=== PATIENT | female | born 1970 | race Caucasian/White ===

== ENCOUNTER 2018-08-05 06:01 | Day surgery (SDC) | payer MEDICAID, OTHER ==
[2018-08-05] MEDS ORDERED: ENOXAPARIN SODIUM 40 MG/0.4 ML DISP.SYRIN SQ ONE (06:21)
[2018-08-05] MEDS ORDERED: LACTATED RINGERS 1,000 ML IV ONE (06:22)
[2018-08-05] MEDS ORDERED: FAMOTIDINE/PF 20 MG/2 ML VIAL ONE ×2 (07:27→08:48)
[2018-08-05] MEDS ORDERED: SCOPOLAMINE HYDROBROMIDE 1.5MG/72HR PATCH TD ONE ×2 (07:33→08:48)
[2018-08-05] MEDS ORDERED: PROPOFOL 200 MG/20 ML VIAL IV ONE (08:48)
[2018-08-05] MEDS ORDERED: SEVOFLURANE 250 ML LIQUID IH ONE (08:48)
[2018-08-05] MEDS ORDERED: ACETAMINOPHEN 1,000 MG/100 ML INJ IV ONE (08:48)
[2018-08-05] MEDS ORDERED: FENTANYL 250MCG/5ML VIAL ONE (08:48)
[2018-08-05] MEDS ORDERED: LACTATED RINGERS 1,000 ML IV.SOLN IV ONE (08:48)
[2018-08-05] MEDS ORDERED: SUGAMMADEX 200 mg/2mL 200 MG/2 ML VIAL IV ONE (08:48)
[2018-08-05] MEDS ORDERED: ceFAZolin SODIUM 1 GM VIAL ONE (08:48)
[2018-08-05] MEDS ORDERED: MIDAZOLAM HCL 2 MG/2 ML VIAL ONE (08:48)
[2018-08-05] MEDS ORDERED: GLYCOPYRROLATE 0.2 MG/1 ML 1 ML ONE (08:48)
[2018-08-05] MEDS ORDERED: DEXAMETHASONE SOD PHOS 4 MG/ML VIAL ONE (08:48)
[2018-08-05] MEDS ORDERED: ROCURONIUM BROMIDE 10 MG/ML 5ML VIAL ONE (08:48)
[2018-08-05] MEDS ORDERED: LIDOCAINE HCL/PF 2% 100 MG/5 ML VIAL IJ ONE (08:48)
[2018-08-05] MEDS ORDERED: ONDANSETRON HCL/PF 4 MG/ 2ML VIAL ONE (08:48)
== END 2018-08-05 10:28 | disposition other institution (70) ==
LOC: OPSURG 06:01
PROVIDERS: ATTEND Surgery
DX: E66.01 Morbid (severe) obesity due to excess calories (principal); Z68.42 Body mass index [BMI] 45.0-49.9, adult; K21.9 Gastro-esophageal reflux disease without esophagitis; I10 Essential (primary) hypertension
CPT/HCPCS: 43235; 43775; A9270; J1650; J2250; J7120; S0028; J0690; J1100; J2001; J2405; J2704; J3490

== ENCOUNTER 2018-08-05 10:13 | Inpatient (IN) | payer MEDICAID, OTHER ==
[2018-08-05] MEDS ORDERED: ONDANSETRON HCL/PF 4 MG/ 2ML VIAL IVP PRN (10:30)
[2018-08-05] MEDS ORDERED: diphenhydrAMINE HCL 50 MG/ML VIAL IVP PRN (10:30)
[2018-08-05] MEDS ORDERED: PROMETHAZINE HCL 25 MG in 0.9 % SODIUM CHLORIDE 50 ML IV PRN (10:30)
[2018-08-05] MEDS ORDERED: LEVALBUTEROL HCL 1.25 MG/3 ML AMPUL.NEB NEB PRN (10:30)
[2018-08-05] MEDS: KETOROLAC TROMETHAMINE 30 MG/1ML VIAL IVP PRN ×2 (11:24→18:01)
[2018-08-05] MEDS: 0.9 % SODIUM CHLORIDE 1,000 ML IV SCH ×2 (11:25→18:02)
[2018-08-05] MEDS: ENOXAPARIN SODIUM 40 MG/0.4 ML DISP.SYRIN SQ SCH (11:25)
[2018-08-05] MEDS: CEFAZOLIN SODIUM/DEXTROSE,ISO 1 GM/50 ML PIGGYBACK IV SCH ×2 (13:58→20:10)
[2018-08-05] MEDS: fentaNYL CITRATE/PF 100 MCG/ 2ML AMP IVP PRN ×2 (13:59→21:38)
--- NOTE | 2018-08-05 14:53 | History and Physical Report ---
History of Present Illnes - History of Present Illness Reason for Visit: S/P Sleeve Gastrectomy History of Present Illness: Patient is a 47-year-old white female that is being admitted s/p sleeve gastrectomy. Procedure went well- patient tolerated well. She will be admitted for IVF, pain medication, and diet monitoring with precautions. Patient will get up and ambulate frequently to prevent DVT's (along with the use of SCDs while in bed) and use IS frequently to prevent respiratory infections- this has all been explained to patient and she voices understanding. - Past Medical History Cardiac: HTN. denies: AFIB, Hyperlipidemia Pulmonary: denies: Asthma, Bronchitis [employer]: Migraine. denies: Seizure Gastrointestinal: Irritable bowel disease Heme/Onc: denies: Anemia NOS, Iron deficiency anemia Hepatobiliary: denies: Cirrhosis, Cholelithiasis, Hep A/B/C Psych: Anxiety, Depression Musculoskeletal: denies: Osteoarthritis Rheumatologic: denies: Fibromyalgia Infectious Disease: denies: HIV ENT: denies: Sinusitis Renal/: denies: Chronic renal insuff Endocrine: Diabetes (Patient states she is "prediabetic"), Hypothyroidism Dermatology: denies: Cellulitis Grav: 6 Para: 6 - Past Surgical History Past Surgical History: (6 c-sections), Hernia Repair (umbilical) - Past Family History Father Family History: Other (unknown hx) Mother Family History: Cancer, Other (mother at age 43 from brain cancer) - Past Social History Smoke: No Alcohol: None Drugs: None Lives: With Family Domestic Violence: Negative - Health Maintenance Health Maintenance: denies: Influenza Vaccine, Pneumococcal Vaccine Influenza Vaccine: No Pneumonia Vaccine: No Resuscitation Status: Resusciation Status Resuscitation Status Full Code - Unable to Obtain History Unable to Obtain: No Review of Systems - Review of Systems Constitutional: negative: Fever, Chills Eyes: negative: pain, vision change ENT: negative: Ear Pain, Ear Discharge Respiratory: negative: Shortness of Breath, Wheezing Cardiovascular: negative: Chest Pain, Palpitations Gastrointestinal: Nausea, Abdominal Pain (s/p surgery). negative: Vomiting, Diarrhea, Constipation Genitourinary: negative: Dysuria Musculoskeletal: negative: Neck Pain, Shoulder Pain Skin: negative: Rash Neurological: negative: Incoordination, Confusion - Medications/Allergies Allergies/Adverse Reactions: Allergies Allergy/AdvReac Type Severity Reaction Status Date / Time No Known Allergies Allergy Verified 08/05/18 10:53 Home Medications: Home Medications Benazepril/Hydrochlorothiazide [Lotensin Hct 5-6.25 Tablet] 1 each PO DAILY 08/05/18 Duloxetine HCl [Cymbalta] 60 mg PO DAILY 08/05/18 Levothyroxine Sodium [Synthroid] 175 mcg PO 0700 08/05/18 Metformin HCl [Glucophage] 1,000 mg PO PM 08/05/18 Metformin HCl [Glucophage] 500 mg PO [id number] 08/05/18 Current Inpatient Medications: Current Inpatient Medications Cefazolin Sodium/Dextrose (Cefazolin 1 G/50 Ml-Dextrose) 1 gm IV Q8H JOSE ALEJANDRO Stop: 08/05/18 23:00 Last Admin: 08/05/18 13:58 Dose: 1 gm Diphenhydramine HCl (Benadryl) 25 mg IVP Q6H PRN PRN Reason: Sleeping and Itching Stop: 08/09/18 10:29 Duloxetine HCl (Cymbalta) 60 mg PO HS JOSE ALEJANDRO Enoxaparin Sodium (Lovenox) 40 mg SQ QD [facility] Stop: 08/19/18 10:59 Last Admin: 08/05/18 11:25 Dose: Not Given Famotidine (Pepcid) 20 mg IVP BID [facility] Stop: 08/09/18 20:59 Fentanyl Citrate (Duragesic) 100 mcg IVP Q2H PRN PRN Reason: Severe Pain Stop: 08/09/18 10:29 Last Admin: 08/05/18 13:59 Dose: 100 mcg Sodium Chloride (Normal Saline) 1,000 mls @ 150 mls/hr IV Q8H JOSE ALEJANDRO Last Admin: 08/05/18 11:25 Dose: 150 mls/hr Promethazine HCl 25 mg/ Sodium (Chloride) 51 mls @ 200 mls/hr IV Q6 PRN PRN Reason: Nausea / Vomiting Stop: 08/09/18 10:29 Ketorolac Tromethamine (Toradol) 30 mg IVP Q6 PRN PRN Reason: For Mild Pain Stop: 08/09/18 10:29 Last Admin: 08/05/18 11:24 Dose: 30 mg Levalbuterol HCl (Xopenex) 1.25 mg NEB Q4 PRN PRN Reason: SOA, Dyspnea, or Wheezing Stop: 08/09/18 10:29 Levothyroxine Sodium (Synthroid) 175 mcg PO 0700 [facility] Miscellaneous (Chem Sticks) 1 each MC Q6H JOSE ALEJANDRO Last Admin: 08/05/18 11:25 Dose: 1 each Morphine Sulfate () 4 mg IVP Q2 PRN PRN Reason: Severe Pain Stop: 08/09/18 10:29 Ondansetron HCl (Zofran 4 Mg/2 Ml) 4 mg IVP Q6H PRN PRN Reason: Nausea / Vomiting Stop: 08/09/18 10:29 Exam - Exam Vital Signs: Vital Signs (72 hours) 08/05/18 08/05/18 08/05/18 10:30 11:00 11:30 Temperature 98.8 F 98.4 F 98.1 F Pulse Rate [ 96 H 97 H 99 H Right] Respiratory 18 18 18 Rate Blood Pressure 147/82 164/78 174/89 [Right Arm] O2 Sat by Pulse 93 95 96 Oximetry General: Alert, Oriented to Person, Oriented to Place, Oriented to Time, Cooperative, Mild distress HEENT: Atraumatic, PERRLA, Mouth Mucous membr. moist/[place], Nose Mucous membr. moist/[place] Neck: Normal Range of Motion. No: Stridor, Rigidity Lungs: Clear to auscultation, Normal air movement. No: Wheezes Cardiovascular: Regular rate, Normal S1, Normal S2 Murmur: No: Systolic Murmur Abdomen: Normal bowel sounds, Soft. No: No tenderness Integumentary: Normal, [place], Warm, Dry Extremities: Normal pulses, No tenderness/swelling Neurological: Normal gait, Strength Equal Bilat, Sensation intact Psych/Mental Status: Mental status NL, Mood NL, Appropriate Affect Assessment/Plan - Assessment/Plan (1) Status post gastric surgery Status: Acute Current Visit: Yes Assessment: Patient has been up and ambulating in the hallway without difficulty Plan: Patient will receive IVF, IV pain management for 24 hours and then transition to oral. Lovenox and SCDs for DVT prevention. Advance diet as tolerated per protocol. IV H2 aby twice a day. (2) Morbid obesity Status: Acute Current Visit: Yes (3) Hypertension Status: Acute Current Visit: Yes Plan: Will plan to hold benazapril during hospitalization and monitor BP closely (4) Pre-diabetes Status: Acute Current Visit: Yes Assessment: Patient states that she is not a diabetic but takes metformin 500mg in the a.m. and 1000mg in the p.m. Plan: Will hold Metformin during hospitalization and check blood sugars every 6 hours (5) Hypothyroid Status: Acute Current Visit: Yes Qualifiers: Hypothyroidism type: unspecified Qualified Code(s): E03.9 - Hypothyroidism, unspecified Plan: Will continue with thyroid medication (6) Anxiety and depression Status: Acute Current Visit: Yes Plan: Will continue Cymbalta during hospitalization (7) Irritable bowel syndrome (IBS) Status: Acute Current Visit: Yes Plan: Will hold IBS meds that are oral but will give pepcid 20 mg IV twice a day and monitor VTE Assessment - RISK FACTOR SCORE VTE RISK FACTOR SCORES: AGE 40-60 YEARS, MAJOR SURGERY/ANESTHESIA TIME > 1 HOUR
[2018-08-05] MEDS ORDERED: ceFAZolin SODIUM 1 GM VIAL IVP SCH (16:00)
[2018-08-05 18:47] VITALS: BMI 49.1
[2018-08-05] MEDS ORDERED: 0.9 % SODIUM CHLORIDE 50 ML IV ONE (20:32)
[2018-08-05] MEDS ORDERED: DULoxetine HCL 30 MG CAPSULE.DR PO SCH (21:00)
[2018-08-05] MEDS: FAMOTIDINE/PF 20 MG/2 ML VIAL IVP SCH (21:40)
[2018-08-05] MEDS: MORPHINE SULFATE 4 MG/ML PREFILLED SYR IVP PRN (23:15)
[2018-08-06] MEDS ORDERED: LEVOTHYROXINE SODIUM 25 MCG TABLET PO SCH ×2 (04:00→07:00)
[2018-08-06] MEDS: 0.9 % SODIUM CHLORIDE 1,000 ML IV SCH ×2 (04:41→15:11)
[2018-08-06] MEDS: LEVOTHYROXINE SODIUM 25 MCG TABLET PO SCH (04:42)
[2018-08-06] MEDS: MORPHINE SULFATE 4 MG/ML PREFILLED SYR IVP PRN ×2 (04:51→19:38)
[2018-08-06] MEDS ORDERED: DULoxetine HCL 30 MG CAPSULE.DR PO SCH (06:00)
[2018-08-06] MEDS: DULoxetine HCL 30 MG CAPSULE.DR PO SCH ×3 (06:17→21:11)
[2018-08-06] MEDS ORDERED: LEVOTHYROXINE SODIUM 100 MCG TABLET PO SCH (07:00)
[2018-08-06] MEDS ORDERED: LISINOPRIL 5 MG TABLET PO ONE (07:04)
[2018-08-06] MEDS: HYDROCHLOROTHIAZIDE 25 MG TABLET PO SCH ×2 (07:27→10:03)
[2018-08-06] MEDS ORDERED: 0.9 % SODIUM CHLORIDE 1,000 ML IV SCH (07:34)
[2018-08-06] MEDS ORDERED: MAG HYDROX/ALUMINUM HYD/SIMETH 30 ML UDC PO ONE ×2 (07:34→18:43)
[2018-08-06] MEDS ORDERED: PROMETHAZINE HCL 25 MG/ML VIAL ONE (08:01)
--- NOTE | 2018-08-06 08:23 | Inpatient Progress Note ---
Subjective - Required Recertification Statement I anticipate X number of days because-include discharge plan: 1 - Review of Systems Events since last encounter: Patient has been doing very well walking frequently in the hallway and using incentive spirometer. She stated that if she is continually taking sips every 15 minutes she does great with n/v but if she sleeps and then tries to take sips she experiences nausea and dry heaves. We held her blood pressure medication d/t surgery. Blood pressure was elevated this morning with systolic > 180. Tried to give her blood pressure med and she vomited immediately. Gave her mylanta and waited 15 min and patient felt much better and was able to take blood pressure medication. Subjective: Patient states that she is having no difficulty with walking, denies shortness of breath or leg pain. Only complaint is nausea and dry heaves- she feels that her pain is controlled and triggered by dry heaves. General: Denies: Chills HEENT: Denies: Head Aches, Visual Changes, Eye Pain Pulmonary: Denies: Dyspnea, Cough Cardiovascular: Denies: Chest Pain, Palpitations Gastrointestinal: Nausea, Vomiting, Abdominal Pain. Denies: Diarrhea, Constipation Genitourinary: Denies: Dysuria Musculoskeletal: Denies: Neck Pain, Shoulder Pain Neurological: Denies: Incoordination, Confusion Objective - Exam Vitals and I&O: Vital Signs Temp 97.3 F L 08/06/18 06:00 Pulse 100 H 08/06/18 06:00 Resp 16 08/06/18 06:00 BP 194/88 08/06/18 06:00 Pulse Ox 95 08/06/18 06:00 Intake & Output 08/05/18 08/05/18 08/06/18 11:59 23:59 11:59 Intake Total 94 1915 2720 Output Total 1200 2200 Balance 94 715 520 Weight 134 kg Intake: IV 94 1615 2700 Left Wrist 94 1615 900 Right Forearm 1800 Oral 300 20 Output: Urine 1200 2200 Other: Voiding Method Toilet Toilet Toilet # Voids 4 1 General: Alert, Oriented to Person, Oriented to Place, Oriented to Time, Cooperative, Mild distress (d/t nausea and dry heaves) HEENT: Atraumatic, PERRLA, Mouth Mucous membr. moist/[place], Nose Mucous membr. moist/[place] Neck: Supple, +2 carotid pulse wo bruit Lungs: Clear to auscultation, Normal air movement, Speaks full Sentences. No: Wheezes, Rales Cardiovascular: Regular rate, Normal S1, Normal S2 Abdomen: Normal bowel sounds, Soft. No: Distended Extremities: Normal pulses, No tenderness/swelling Skin: Normal, [place], Warm, Dry Neurological: Normal gait, Normal speech, Strength Equal Bilat Psych/Mental Status: Mental status NL, Mood NL, Appropriate Affect, Intact Judgment Other physical findings: Incisions are without redness or excessive drainage Assessment/Plan - Assessment/Plan (1) Status post gastric surgery Status: Acute Current Visit: Yes Assessment: Patient has been experiencing nausea and dry heaves- states it only occurs after she wakes up (when she is awake and taking frequent sips she does well) Plan: Mylanta was given and helped with nausea (2) Morbid obesity Status: Acute Current Visit: Yes (3) Hypertension Status: Acute Current Visit: Yes Qualifiers: Hypertension type: essential hypertension Qualified Code(s): I10 - Essential (primary) hypertension Assessment: Blood pressure elevated this morning- attempted to give BP med this morning and patient immediately vomited. Gave Mylanta and waited 15 minutes and patient was able to take her BP meds. Will continue to monitor BP (4) Pre-diabetes Status: Acute Current Visit: Yes Assessment: Blood sugars have been stable at 110 & 112. No hypo/hyperglycemic sx's noted. Plan: Will continue to hold Metformin and monitor blood sugars (5) Hypothyroid Status: Acute Current Visit: Yes Qualifiers: Hypothyroidism type: unspecified Qualified Code(s): E03.9 - Hypothyroidism, unspecified (6) Anxiety and depression Status: Acute Current Visit: Yes (7) Irritable bowel syndrome (IBS) Status: Acute Current Visit: Yes
[2018-08-06] MEDS ORDERED: 0.9 % SODIUM CHLORIDE 50 ML IV ONE (09:18)
[2018-08-06] MEDS: FAMOTIDINE/PF 20 MG/2 ML VIAL IVP SCH ×2 (09:33→19:28)
[2018-08-06] MEDS: ENOXAPARIN SODIUM 40 MG/0.4 ML DISP.SYRIN SQ SCH (11:16)
[2018-08-06] MEDS: HYDROCODONE/ACETAMINOPHEN 15 ML SOLUTION PO PRN (12:36)
[2018-08-06] MEDS: fentaNYL CITRATE/PF 100 MCG/ 2ML AMP IVP PRN (13:43)
[2018-08-07] MEDS: fentaNYL CITRATE/PF 100 MCG/ 2ML AMP IVP PRN (01:06)
[2018-08-07] MEDS: 0.9 % SODIUM CHLORIDE 1,000 ML IV SCH ×2 (01:11→13:13)
[2018-08-07] MEDS: DULoxetine HCL 30 MG CAPSULE.DR PO SCH (04:46)
[2018-08-07] MEDS: LEVOTHYROXINE SODIUM 25 MCG TABLET PO SCH (05:08)
[2018-08-07] MEDS: HYDROCODONE/ACETAMINOPHEN 15 ML SOLUTION PO PRN ×2 (06:15→11:29)
[2018-08-07] MEDS: FAMOTIDINE/PF 20 MG/2 ML VIAL IVP SCH (08:13)
[2018-08-07] MEDS ORDERED: LISINOPRIL 5 MG TABLET PO ONE (09:00)
[2018-08-07] MEDS ORDERED: HYDROCHLOROTHIAZIDE 25 MG TABLET PO SCH (09:00)
--- NOTE | 2018-08-07 09:16 | Discharge Summary ---
Discharge Summary - Discharge Sumary History of Present Illness: Patient is a 47-year-old white female that is being admitted s/p sleeve gastrectomy. Procedure went well- patient tolerated well. She will be admitted for IVF, pain medication, and diet monitoring with precautions. Patient will get up and ambulate frequently to prevent DVT's (along with the use of SCDs while in bed) and use IS frequently to prevent respiratory infections- this has all been explained to patient and she voices understanding. Condition at Discharge: Stable Home Medications: Ambulatory Orders Medication Instructions Recorded Benazepril/Hydrochlorothiazide 1 each PO DAILY 08/05/18 [Lotensin Hct 5-6.25 Tablet] Duloxetine HCl [Cymbalta] 60 mg PO DAILY 08/05/18 Levothyroxine Sodium [Synthroid] 175 mcg PO 0700 08/05/18 Metformin HCl [Glucophage] 1,000 mg PO PM 08/05/18 Metformin HCl [Glucophage] 500 mg PO [id number] 08/05/18 Hydrocodone/Acetaminophen 10 ml PO Q6H PRN #250 solution 08/07/18 [Hydrocodone-Acetamn 7.5-325/15] Promethazine HCl [Phenergan] 12.5 mg PO Q6 PRN #250 ml 08/07/18 Consultations this Visit: Other (Keep follow up appt. s/p surgery) Procedures this Visit: Other (s/p gastric sleeve) Allergies/Adverse Reactions: Allergies Allergy/AdvReac Type Severity Reaction Status Date / Time No Known Allergies Allergy Verified 08/05/18 10:53 Patient Problems: Current Active Problems Problem Status Onset Anxiety and depression Acute Hypertension Acute Hypothyroid Acute Irritable bowel syndrome (IBS) Acute Morbid obesity Acute Pre-diabetes Acute Status post gastric surgery Acute Discharge Summary: Patient was started on routine postoperative care. Patient did have some mild nausea and vomiting associated with dry heaving. Patient did respond to antiemetics but did very well with Mylanta. We were able to hold patients Metformin and post op blood sugars have been WNL. Attempted to hold BP meds but BP systolic was > 180. Patient was placed back on home blood pressure meds and patient has been doing well. Patient has done extremely well walking immediately after surgery and using incentive spirometer. She has family support at home. She feels comfortable with discharge instructions- she states that everything was gone over thoroughly prior to surgery. Patient otherwise had an uneventful postoperative course. Patient other chronic medical problems remain stable. Patient will hold diabetic medication until follow up appointment and continue with her blood pressure medication. Hospital Course: Patient did well, she received IVFs, IV pain meds (did well transitioning to oral), she did with strict gastric diet, patient was up am bulating in the halls frequently and independently (SCDs on while in bed), and patient using incentive spirometer. Physical assessment has been WNL, abdomen soft, mild tenderness, post op sites without redness. - Final Diagnosis (1) Status post gastric surgery Problems: Incision site without redness. Abdomen soft, + bowel sounds, mild tenderness. Right or Left: Right (Patient will take meds as prescribed, ambulate frequently, use IS, and follow strict gastric diet) (2) Morbid obesity Right or Left: Right (S/P gastric sleeve) (3) Hypertension Right or Left: Right (Patient will continue BP medication- she will keep journal of BPs and take journal to f/u appt.) (4) Pre-diabetes Right or Left: Right (Patient is to hold Metformin until f/u appt.) (5) Hypothyroid Right or Left: Right (controlled with home meds) (6) Anxiety and depression Right or Left: Right (controlled with home meds) (7) Irritable bowel syndrome (IBS) Right or Left: Right (controlled with home meds)
[2018-08-07] MEDS ORDERED: ONDANSETRON HCL 4 MG TAB.RAPDIS ONE (11:30)
[2018-08-07] MEDS ORDERED: ONDANSETRON HCL 4 MG TAB.RAPDIS PO ONE (11:30)
[2018-08-07] MEDS: ENOXAPARIN SODIUM 40 MG/0.4 ML DISP.SYRIN SQ SCH (13:14)
[2018-08-07 13:23] VITALS: BP 187/88
[2018-08-08] MEDS ORDERED: LEVOTHYROXINE SODIUM 50 MCG TABLET PO SCH (04:00)
== END 2018-08-07 13:27 | disposition home or self-care (01) | DRG 641 ==
LOC: UNDOADMIN 10:13 → SOUTH 10:13
PROVIDERS: ADMIT Nurse Practitioner Family; ATTEND Nurse Practitioner Family
DX: E66.01 Morbid (severe) obesity due to excess calories (principal); I10 Essential (primary) hypertension; R11.2 Nausea with vomiting, unspecified; R73.03 Prediabetes; E03.9 Hypothyroidism, unspecified; F41.9 Anxiety disorder, unspecified; F32.9 Major depressive disorder, single episode, unspecified; K58.9 Irritable bowel syndrome, unspecified; Z68.42 Body mass index [BMI] 45.0-49.9, adult
CPT/HCPCS: 81025; 99231; 99232; 99238; J1650; J1885; J2270; J2550; J3010; S0028; A9270; A9270-GY; J7030; S1016